=== PATIENT | female | born 1980 ===

== ENCOUNTER → 2024-05-22 11:20 | Outpatient (BNVA) | payer OTHER, SELFPAY | PROVIDERS: PCP Pediatrics; Visit Provider Physician Assistant Surgical ==

== ENCOUNTER 2024-06-22 08:26 | Outpatient (AMB) | payer OTHER, SELFPAY ==
--- NOTE | 2024-06-22 08:30 | MHC.OFFVISWM ---
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 Organization Required: No Allergies No Known Allergies Allergy (Verified 06/22/24 08:43) Medication List - Last Reconciled 06/22/24 by HAFSA Mayes albuterol sulfate mg inhalation amlodipine 5 mg PO DAILY benzonatate mg PO blood sugar diagnostic As directed CPAP (CPAP Machine/Device) As directed dulaglutide (Trulicity) mg subcut ergocalciferol (vitamin D2) 1,250 mcg PO QWEEK fluticasone propion-salmeterol 230-21 mcg/actuation 2 puffs inhalation BID fluticasone propion-salmeterol 232-14 mcg/actuation 1 inh inhalation BID hydrochlorothiazide 25 mg PO DAILY montelukast 10 mg PO DAILY omeprazole 20 mg PO DAILY rosuvastatin 5 mg PO DAILY valsartan 160 mg PO DAILY HPI Comments Details: Pt is here to start the [facility] Weight Management surgical weight loss program. She heard about our program from a friendHer goal is to lose weight and achieve a healthy lifestyle as well as to improve, if not resolve, obesity related medical conditions, including thelma, hld, htn. She reports first being concerned about her weight 24 years ago, highest weight to date was 390. Current weight is 310.8 pounds with a BMI of 56.9. She has tried multiple methods of weight loss including previous gastric banding in approximately 2013, fad diets without permanent results. She lives with her boyfriend. 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 She wakes at:?11 am, and goes to bed at?11 pm. Dinner is at 5 pm. Breakfast: eggs w toast, fast food AM snack: orange or banana Lunch: fast food, rice, salad PM snack: skip Dinner: soup, fruit, fish, potatoes, veg, chicken and rice After dinner: ice cream Other snacks: as above Liquids: 80-96 oz water, 20 oz gatorade soda, 1-2 cans sprite per week, Alcohol/marijuana/tobacco intake: none Exercise: none, previous [employer] membership GERD score: 0 ROBINSON score: 0 ESS score: 8 QOL score: 60 PFSH Surgical History Hx of laparoscopic gastric banding History of abdominoplasty Hx of eye surgery Family History Mother Breast CA Maternal Uncle Skin cancer Social History Alcohol intake: current Alcohol intake frequency: holidays/special occasions only Patient Tobacco Use Status: Never used Tobacco Physical Exam Const General: cooperative, healthy appearing and no acute distress Orientation/consciousness: patient oriented x3 HEENT Head: Yes normal to inspection Ears: hearing grossly normal bilaterally General nose exam: Normal external nose present Face and sinus: Yes normal facial exam Eyes General: appearance normal, both eyes and all related structures Resp Effort & Inspection: normal respiratory effort Auscultation: clear to auscultation bilaterally Cardio Rate: regular rate Rhythm: regular rhythm Heart sounds: S1 normal heart sound present and S2 normal heart sound present GI Inspection: Yes normal to inspection, No distended and Yes obesity Palpation (GI): Soft to palpation, nontender and no guarding Auscultation: normal bowel sounds Skin General skin exam: no rashes or lesions noted Neuro General: patient oriented x3 Extrem General: No edema Psych Appearance: grossly normal Mental Status: mental status grossly normal Speech and movement: Normal speech and movement present Affect: normal affect Attitude: cooperative Assessment & Plan Assessment & Plan (1) Morbid obesity: Code(s): E66.01 - Morbid (severe) obesity due to excess calories Category: Medical Plan: This is a?44 yo female who will start our SWL program to prepare for bariatric surgery.? Blood work, CXR, ECG, Abd US and UGI have been ordered. She is being scheduled for initial consultations. She will start SWL classes and watch the first three videos before her next appointment. 1. You have been given a paper with a link to our software chip ([email or web address]) to generate an individualized nutritional and exercise plan specific for you. Please send me a screenshot of the plans you will generate Meal to include lean meat (beef, fish, pork, turkey, chicken), or hungarian yogurt, or egg whites, or beans with a salad with olive oil and fruits (berries, pears, apples, kiwi). Avoid salt, breads, potatoes, rice, pasta, desserts. 2. If you choose shakes, each shake would be drunk slowly, like coffee over a period of 2 hours. 3. If you choose bars, cut each bar in 4 pieces and eat each piece in 30 min to make each bar last 2 hours. 4. I emphasized the importance of measuring accurately the food portion and measure it when serving the food on a plate 5. The meal portions include a specific number of forks of meat (protein) and salad. You always eat the meat portion but you can replace up to half of salad/vegetables portion with rice, potatoes or pasta, or a fruit ?if you like. The less you do it the better weight loss will be. 6. One full-size fork is what can be scooped on the fork without falling aside and not what can be bit with the fork. Use regular forks like those you find in a typical restaurant. 7.? Please send me weight measurements from your body composition scale as soon as possible and then once a week. Always include your diet and exercise plan. The best time to weigh yourself is first thing in the morning after going to the bathroom. 8. The best choice for exercise would be treadmill, elliptical, stationary bike. Please rejoin [employer] gym. Alternatively start walking outside daily, tracking calories with a goal of 300 calories per day, daily. You can download the chip [email or web address] which can track your time, distance and calories while walking outside. You press start in the chip when you start and then stop when you are finished. 9.?Goal is to lose at least 1.5-2 lbs per week, and about 10% before surgery, which is about 31 pounds 10. Please follow the diet plan exactly without any change. If you don't like something about the plan or you feel hungry you need to communicate with me so I can help you revise the plan. My cell phone number to communicate with me by text is [phone] Patient is morbidly obese and is not considered stable at this time.?I spent a total of 70 minutes reviewing/updating records, examining the patient and counseling the patient on weight management as detailed above. Orders: Orders Hemoglobin A1c Today E66.01 - Morbid (severe) obesity due to excess calories, E78.00 - Pure hypercholesterolemia, unspecified, G47.33 - Obstructive sleep apnea (adult) (pediatric), I10 - Essential (primary) hypertension Lipid Panel Today E66.01 - Morbid (severe) obesity due to excess calories, E78.00 - Pure hypercholesterolemia, unspecified, G47.33 - Obstructive sleep apnea (adult) (pediatric), I10 - Essential (primary) hypertension IRON PROFILE Today E66.01 - Morbid (severe) obesity due to excess calories, E78.00 - Pure hypercholesterolemia, unspecified, G47.33 - Obstructive sleep apnea (adult) (pediatric), I10 - Essential (primary) hypertension Comprehensive Met. Panel Today E66.01 - Morbid (severe) obesity due to excess calories, E78.00 - Pure hypercholesterolemia, unspecified, G47.33 - Obstructive sleep apnea (adult) (pediatric), I10 - Essential (primary) hypertension Vitamin B12 and Folate Today E66.01 - Morbid (severe) obesity due to excess calories, E78.00 - Pure hypercholesterolemia, unspecified, G47.33 - Obstructive sleep apnea (adult) (pediatric), I10 - Essential (primary) hypertension Vitamin A Today E66.01 - Morbid (severe) obesity due to excess calories, E78.00 - Pure hypercholesterolemia, unspecified, G47.33 - Obstructive sleep apnea (adult) (pediatric), I10 - Essential (primary) hypertension XR chest 2V Today E66.01 - Morbid (severe) obesity due to excess calories, E78.00 - Pure hypercholesterolemia, unspecified, G47.33 - Obstructive sleep apnea (adult) (pediatric), I10 - Essential (primary) hypertension ECG 12 lead EKG Today E66.01 - Morbid (severe) obesity due to excess calories, E78.00 - Pure hypercholesterolemia, unspecified, G47.33 - Obstructive sleep apnea (adult) (pediatric), I10 - Essential (primary) hypertension FL upper GI w air Today E66.01 - Morbid (severe) obesity due to excess calories, E78.00 - Pure hypercholesterolemia, unspecified, G47.33 - Obstructive sleep apnea (adult) (pediatric), I10 - Essential (primary) hypertension Insulin Today E66.01 - Morbid (severe) obesity due to excess calories, E78.00 - Pure hypercholesterolemia, unspecified, G47.33 - Obstructive sleep apnea (adult) (pediatric), I10 - Essential (primary) hypertension H Pylori Breath Test Today E66.01 - Morbid (severe) obesity due to excess calories, E78.00 - Pure hypercholesterolemia, unspecified, G47.33 - Obstructive sleep apnea (adult) (pediatric), I10 - Essential (primary) hypertension Complete Blood Count Auto Diff Today E66.01 - Morbid (severe) obesity due to excess calories, E78.00 - Pure hypercholesterolemia, unspecified, G47.33 - Obstructive sleep apnea (adult) (pediatric), I10 - Essential (primary) hypertension Zinc Today E66.01 - Morbid (severe) obesity due to excess calories, E78.00 - Pure hypercholesterolemia, unspecified, G47.33 - Obstructive sleep apnea (adult) (pediatric), I10 - Essential (primary) hypertension C Reactive Protein Today E66.01 - Morbid (severe) obesity due to excess calories, E78.00 - Pure hypercholesterolemia, unspecified, G47.33 - Obstructive sleep apnea (adult) (pediatric), I10 - Essential (primary) hypertension Vitamin B1 Today E66.01 - Morbid (severe) obesity due to excess calories, E78.00 - Pure hypercholesterolemia, unspecified, G47.33 - Obstructive sleep apnea (adult) (pediatric), I10 - Essential (primary) hypertension TSH reflex Free T4 Today E66.01 - Morbid (severe) obesity due to excess calories, E78.00 - Pure hypercholesterolemia, unspecified, G47.33 - Obstructive sleep apnea (adult) (pediatric), I10 - Essential (primary) hypertension Ferritin Today E66.01 - Morbid (severe) obesity due to excess calories, E78.00 - Pure hypercholesterolemia, unspecified, G47.33 - Obstructive sleep apnea (adult) (pediatric), I10 - Essential (primary) hypertension Vitamin D 25-OH Total Today E66.01 - Morbid (severe) obesity due to excess calories, E78.00 - Pure hypercholesterolemia, unspecified, G47.33 - Obstructive sleep apnea (adult) (pediatric), I10 - Essential (primary) hypertension US abdomen comp w elastography Today E66.01 - Morbid (severe) obesity due to excess calories, E78.00 - Pure hypercholesterolemia, unspecified, G47.33 - Obstructive sleep apnea (adult) (pediatric), I10 - Essential (primary) hypertension Referrals Behavioral Health Referral E66.01 - Morbid (severe) obesity due to excess calories, E78.00 - Pure hypercholesterolemia, unspecified, G47.33 - Obstructive sleep apnea (adult) (pediatric), I10 - Essential (primary) hypertension
[2024-06-22 08:36] VITALS: BP 175/92; PULSE 83; TEMP 36; O2SAT 90; BMI 56.8
== END 2024-06-22 09:22 | disposition home or self-care (01) ==
PROVIDERS: PCP Pediatrics; Visit Provider Physician Assistant Surgical
DX: E66.01 Morbid (severe) obesity due to excess calories (principal); Z68.43 Body mass index [BMI] 50.0-59.9, adult
CPT/HCPCS: 99205

== ENCOUNTER → 2024-06-22 08:26 | Outpatient (BNVA) | payer OTHER, SELFPAY | PROVIDERS: PCP Pediatrics; Visit Provider Physician Assistant Surgical ==

== ENCOUNTER 2024-07-17 09:44 | Outpatient (REF) | payer OTHER, SELFPAY ==
--- NOTE | ~2024-07-17 | US_ITS ---
EXAMINATION: US COMPLETE ABDOMEN WITH LIVER ELASTOGRAPHY CLINICAL INFORMATION: Morbid obesity COMPARISON: None available. TECHNIQUE: Real-time imaging of the abdominal viscera. Noninvasive ultrasound liver fibrosis assessment is performed using Alisia ElastPQ point quantification shear wave elastography (pSWE) with a C5-2 MHz transducer. Multiple elastography samples are obtained. FINDINGS: PANCREAS: The visualized pancreatic head and body are normal in appearance. The remainder of the pancreas is obscured from visualization by the overlying bowel gas. ABDOMINAL AORTA: The proximal, middle, and distal aortic segments are normal in caliber. INFERIOR VENA CAVA: Visualized portions are normal. LIVER: Liver echogenicity is increased consistent with hepatic steatosis. The liver demonstrates normal size and contour. No focal lesion or intrahepatic biliary duct dilatation. The right lobe measures 14 cm in length. The left lobe measures 13 cm in length. Portal flow is towards the liver (hepatopetal). Shear wave liver elastography median stiffness is 1.67 m/s (reference: normal median stiffness is 1.3 m/s or less). IQR/median stiffness to assess sampling precision is 0.10 (reference: good quality data set is IQR/median stiffness of 0.15 or less). GALLBLADDER: There are a few mobile gallstones present, the largest measuring 8 mm in size. There is an additional echogenic mural gallbladder mass-like area measuring 1.2 x 0.5 x 1.2 cm which could be a calcified polyp. No pericholecystic fluid. COMMON BILE DUCT: Normal in caliber measuring 0.7 cm in diameter. RIGHT KIDNEY: Normal. No hydronephrosis. No renal calculi or focal parenchymal lesions. The kidney measures 13.4 cm in maximum dimension. LEFT KIDNEY: Normal. No hydronephrosis. No renal calculi or focal parenchymal lesions. The kidney measures 12.2 cm in maximum dimension. SPLEEN: Normal. The spleen measures 12.7 cm in maximum dimension. FREE FLUID: None. US/US abdomen comp w elastography IMPRESSION: 1. Echogenic liver consistent with hepatic steatosis. 2. Cholelithiasis and question of calcified gallbladder wall polyp. 2. Liver elastography: In the absence of other known clinical signs, measurements rule out compensated advanced chronic liver disease. If there are known clinical signs, further testing may be needed for confirmation. REFERENCE: Society of Radiologists in Ultrasound Liver Stiffness Thresholds (2020): LIVER STIFFNESS THRESHOLDS: *Liver Stiffness equal or less than 1.3 m/s: High probability of being normal. *Liver Stiffness less than 1.7 m/s: In the absence of other known clinical signs, rules out compensated advanced chronic liver disease. *Liver Stiffness 1.7-2.1 m/s: Suggestive of compensated advanced chronic liver disease but need further test for confirmation. *Liver Stiffness over 2.1 m/s: Rules in compensated advanced chronic liver disease. *Liver Stiffness over 2.4 m/s: Suggestive of clinically significant portal hypertension. QUALITY OF DATA SET: *IQR/Median value equal or less than 0.15 implies a quality data set. *IQR/Median value over 0.15 implies a poor quality data set. SIGNIFICANT CHANGE FROM PRIOR EXAM: Significant change if liver stiffness measurement is 10% or greater from prior exam. OTHER CONSIDERATIONS: The stage of liver fibrosis may be overestimated in the setting of acute hepatitis, liver inflammation, elevated liver function tests, hepatic vascular congestion, obstructive cholestasis, non-fasting state, and infiltrative diseases such as amyloidosis and lymphoma. In some patients with NAFLD, the liver stiffness thresholds for compensated advanced chronic liver disease may be lower. In causes other than viral hepatitis and NAFLD, liver stiffness thresholds are not well established. Electronically signed by: Narayan Knight MD 07/25/2024 12:36 PM EDT
[2024-07-17 09:58] LABS: MANUAL DIFF FLAG NO
[2024-07-17 11:44] LABS: Basophils Percent Auto 0.6 % (0-2); Eosinophils Absolute Auto 0.1 X10*3/uL (0.0-0.4); Eosinophils Percent Auto 2.8 % (0-4); Hematocrit 39.6 % (37.0-47.0); Hemoglobin 12.7 g/dl (12.0-16.0); Imm Gran Abs Auto 0.01 X10*3/uL (0.00-0.03); Imm Gran Pct Auto 0.2 % (0.0-0.4); Lymphocytes Percent Auto 42.2 % (20-40); Mean Corpuscular HGB Conc 32.1 g/dl (31.0-35.0); Mean Corpuscular Hemoglobin 27.1 pg (27.0-33.0); Mean Corpuscular Volume 84.6 fL (80.0-98.0); Mean Platelet Volume 9.6 fL (9.4-12.3); Monocytes Absolute Auto 0.5 X10*3/uL (0.1-1.2); Neutrophils Percent Auto 44.2 % (45-73); Platelet Count 294 X10*3/uL (160-400); Red Blood Count 4.68 X10*6/uL (4.20-5.50); Red Cell Distribution Width 14.6 % (11.0-16.0); White Blood Count 4.6 X10*3/uL (4.8-10.8)
[2024-07-17 12:26] LABS: Alanine Aminotransferase 17 U/L (0-31); Albumin Level 3.6 g/dL (3.5-5.0); Alkaline Phosphatase 90 U/L (39-117); Anion Gap 11 (12-20); Aspartate Amino Transferase 15 U/L (5-31); Bilirubin Total 0.3 mg/dL (0.0-1.0); Blood Urea Nitrogen 13 mg/dL (9-16); C Reactive Protein 1.49 mg/dL (< or = 0.50); Calcium 8.8 mg/dL (8.4-10.2); Carbon Dioxide 27 mmol/L (22-29); Chloride 106 mmol/L (96-108); Cholesterol 152 mg/dL (<200); Estimated Glomerular Filt Rate > 60; Glucose Random 116 mg/dL (60-115); HDL Cholesterol 35 mg/dL (>40); Iron 48 mcg/dL (30-160); LDL Cholesterol Calculated 101 mg/dL (<100); Percent Iron Saturation 20 % (15-50); Potassium 3.7 mmol/L (3.3-5.1); Sodium 140 mmol/L (135-145); Total Iron Binding Capacity 236 mcg/dL (228-428); Total Protein 7.5 g/dL (6.5-8.0); Triglycerides 82 mg/dL (<150); Unsaturated Iron Binding 188 ug/dL
[2024-07-17 12:45] LABS: Ferritin 40 ng/mL (10-250); Insulin 14 uU/mL (2-29); TSH reflex Free T4 2.33 uIU/mL (0.32-4.0); Vitamin D 25-OH Total 21.6 ng/mL (>30)
[2024-07-17 13:04] LABS: Folate 7.6 ng/mL (> or = 4.0); Vitamin B12 429 pg/mL (200-900)
[2024-07-17 13:18] LABS: Estimated Average Glucose 160 mg/dL; Hemoglobin A1c % 7.2 % (<6.0)
[2024-07-21 12:43] LABS: Zinc 52 mcg/dL (60-130)
[2024-07-22 17:38] LABS: Vitamin A 23 mcg/dL (38-98)
[2024-08-03 16:33] LABS: Vitamin B1 80
== END 2024-07-17 09:45 | disposition home or self-care (01) ==
LOC: HO.US 09:44
PROVIDERS: PCP Pediatrics; Visit Provider Physician Assistant Surgical
DX: E66.01 Morbid (severe) obesity due to excess calories (principal); I10 Essential (primary) hypertension; G47.33 Obstructive sleep apnea (adult) (pediatric); E78.00 Pure hypercholesterolemia, unspecified; Z13.1 Encounter for screening for diabetes mellitus
CPT/HCPCS: 36415; 76700; 76981; 80053; 80061; 82306; 82607; 82728; 82746; 83036; 83525; 83540; 84425; 84443; 84590; 84630; 85025; 86140

== ENCOUNTER 2024-07-20 08:00 | Outpatient (AMB) | payer OTHER, SELFPAY ==
--- NOTE | 2024-07-20 08:10 | A.OFFWM_ITS ---
Intake Intake Visit Reasons: VIDEO BH Intake Allergies No Known Allergies Allergy (Verified 06/22/24 08:43) PFSH Surgical History Hx of laparoscopic gastric banding History of abdominoplasty Hx of eye surgery Family History Mother Breast CA Maternal Uncle Skin cancer Social History Alcohol intake: current Alcohol intake frequency: holidays/special occasions only Patient Tobacco Use Status: Never used Tobacco Behavioral Health Assessment Weight Management Therapy Therapy Notes Details PT is a 44 years old Female, who presents for a visit to complete BH assessment as part of surgical weight loss program. Presenting Concerns Referral Source WMP-provider, PT saw MB for the first time on 06/22/24. Initially referred by a friend who has surgery with us. Reason for referral Completion of behavioral health assessment as part of process for weight-loss surgery. Precipitating Event Obesity. Issues losing weight despite she had the lapband around 2013. Living Situation Current Living Situation Own At risk of losing current housing? No Satisfied with current living situation? Yes Comments PT lives alone. Food/Weight/Diet Expectations of change Initial goal is to lose at least 1.5-2 lbs per week, and about 10% before surgery, which is about 31 pounds. She started the program on 06/22 at 310Lbs. Patient goals are to improve her health, become an active person and feel better with her body. PT is implementing the following: -Current meal plan: 1 shake, meal for marvin nch, a bar in the afternoon, a meal for dinner. -Exercise plan: walking 1 hour in the mo rning, 5 days at week. Also doing some exercise at home with weights 7 days at week. History/Relationship with food Example of meals before starting the program: Breakfast: Lunch: Dinner: Snacks: Drinks/Liquids: History/Relationship with weight In the last 10 years, the patient's Lowest weight was and highest Social History Family history and relationship PT in 2005, and has been in a rel ationship for about 7 years however they each live at their own place. She doesn't have children. Has 2 brothers from mom and dad, and has 3 other siblings on her dad's side but they don't have a communication. Parents are , mother lives in [place] and father in [place]. PT reports she is very close to her family and her boyfriend's family. Parental/Familial child care supervisor obligations None. Developmental history and status None reported. Currently WNL. Social support Boyfriend, Mother. Community support None. Christian/Spirituality Lutheran. Attend holiness every Saturday. Cultural/Ethnic information PT was born in [place]. Moved to the when was 8 y/o. Legal Involvement and History Current or historical involvement with the legal system? None reported. Education Highest grade completed Bachelors in Information administrative systems. Has an A.S. in medical assistance and coding. Preferred learning style Auditory, Written and Learn by doing Currently enrolled in educational program? No Interested in further educational program? 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 No Meaningful activities Walks, outdoor activities. As part of her job she plans activities for the residents, and she enjoys going to the [employer], [employer], and [employer] often that she enjoys also. Financial Situation Describe current financial situation Comfortable Financial assistance? None Service Service? No Medications Is the patient compliant with medications? Yes Does the patient have Ambrocio Guardian in place? Not applicable Does the patient use complimentary health approaches? No Questionnaires PHQ-9 Over the last 2 weeks, how often have you been bothered by any of the following problems? 1. Little interest or pleasure in doing things: not at all 2. Feeling down, depressed, or hopeless: several days 3. Trouble falling or staying asleep, or sleeping too much: several days 4. Feeling tired or having little energy: several days 5. Poor appetite or overeating: not at all 6. Feeling bad about yourself - or that you are a failure or have let yourself or your family down: not at all 7. Trouble concentrating on things, such as reading the newspaper or watching television: not at all 8. Moving or speaking so slowly that other people could have noticed. Or the opposite - being so fidgety or restless that you have been moving around a lot more than usual: not at all 9. Thoughts that you would be better off or of hurting yourself in some way: not at all Total score: 3 Depression Screening Interpretation: Negative (Scores collected on 06/24. New one will be administered in next visit. ) Depression Screening Done: Yes Source: Developed by Drs. Dev Blackburn, Janelle Coto, Jack Bang and colleagues, with an educational clarice from [employer]. Binge Eating Scale Group 1 A. I don't feel self-conscious about my wt. or body size when I'm with others. B. I feel concerned about how I look to others, but it normally does not make me fell disappointed with myself C. I do get self-conscious about my appearance and wt. which makes me feel disappointed in myself. D. I feel very self-conscious about my wt. and frequently I feel intense shame and disgust for myself. I try to avoid social contacts because of my self- consciousness. Response Group 1: A Group 2 A. I don't have any difficulty eating slowly in the proper manner. B. Although I seem to gobble down foods, I don't end up feeling stuffed because of eating to much. C. At times, I tend to eat quickly and then, I feel uncomfortably full afterwards. D. I have the habit of bolting down my food, without really chewing it. When this happens I usually feel uncomfortably stuffed because I've eaten to much. Response Group 2: C Group 3 A. I feel capable to control my eating urges when I want to. B. I feel like I have failed to control my eating more than the average person. C. I feel utterly helpless when it comes to feeling in control of my eating urges. D. Because I feel so helpless about controlling my eating I have become very desperate about trying to get control. Response Group 3: C Group 4 A. I don't have the habit of eating when I'm bored. B. I sometimes eat when I'm bored, but often I'm able to get busy and get my mind off food. C. I have a regular habit of eating when I'm bored, but occasionally, I can use some other activity to get my mind off eating. D. I have a strong habit of eating when I'm bored. Nothing seems to help me breath the habit. Response Group 4: B Group 5 A. I'm usually physically hungry when I eat something. B. Occasionally, I eat something on impulse even though I really am not hungry. C. I have the regular habit of eating foods, that I might not really enjoy, to satisfy a hungry feeling even though physically, I don't need the food. D. Although I'm not physically hungry, I get a hungry feeling in my mouth that only seems to be satisfied when I eat a food, like sandwich, that fills my mouth. Sometimes, when I eat the food to satisfy my mouth hunger, I then spit the food out so I won't gain weight. Response Group 5: C Group 6 A. I don't feel any guilt or self-hate after I overeat. B. After I overeat, occasionally I feel guilt or self-hate. C. Almost all the time I experience strong guilt or self-hate after I overeat. Response Group 6: C Group 7 A. I don't lose total control of my eating when dieting even after periods when I overeat. B. Sometimes when I eat a forbidden food on a diet, I feel like I blew it and eat even more. C. Frequently, I have the habit of saying to myself, I've blown it now, why not go all the way, when I overeat on a diet. When that happens I eat more. D. I have a regular habit of starting a strict diets for myself but I break the diets by going on an eating binge. My life seems to be either a feast or famine. Response Group 7: D Group 8 A. I rarely eat so much food that I feel uncomfortably stuffed afterwards. B. Usually about once a month, I each such a quantity of food, I end up feeling very stuffed. C. I have regular periods during the month when I eat large amounts of food, either at mealtime or at snacks. D. I eat so much food that I regularly feel quite uncomfortable after eating and sometimes a bit nauseous. Response Group 8: D Group 10 A. I usually am able to stop eating when I want to. I know when enough is enough. B. Every so often, I experience a compulsion to eat which I can't seem to control. C. Frequently, I experience strong urges to eat which I seem unable to control, but at other times I can control my eating urges. D. I feel incapable of controlling urges to eat. I have a fear of not being able to stop eating voluntarily. Response Group 10: A Group 11 A. I don't have any problem stopping eating when I feel full. B. I usually can stop eating when I feel full but occasionally overeat leaving me feeling uncomfortably stuffed. C. I have a problem stopping eating once I start and usually I feel uncomfortably stuffed after I eat a meal. D. Because I have a problem not being able to stop eating when I want, I sometimes have to induce vomiting to relieve my stuffed feeling. Response Group 11: A Group 12 A. I seem to eat just as much when I'm with others, Family social gatherings as when I'm by myself. B. Sometimes, when I'm with other persons, I don't eat as much as I want to eat because I'm self-conscious about my eating. C. Frequently, I eat only a small amount of food when others are present, because I'm very embarrassed about my eating. D. I feel so ashamed about overeating that I pick times to overeat when I know no one will see me. I feel like a closet eater. Response Group 12: A Group 13 A. I eat three meals a day with only an occasional between meal snack. B. I eat 3 meals a day, but I also normally snack between meals. C. When I am snacking heavily, I get in the habit of skipping regular meals. D. There are regular periods when I seem to be continually eating, with no planned meals. Response Group 13: D Group 14 A. I don't think much about trying to control unwanted eating urges. B. At least some of the time, I feel my thoughts are pre-occupied with trying to control my eating urges. C. I feel that frequently I spend much time thinking about how much I ate or about trying not to eat anymore. D. It seems to me that most of my waking hours are pre-occupied by thoughts about eating or not eating. I feel like I'm constantly struggling not to eat. Response Group 14: B Group 15 A. I don't think about food a great deal. B. I have strong craving for food but they last only for brief periods of time. C. I have days when I can't seem to think about anything else but food. D. Most of my days seem to be pre-occupied with thoughts about food. I feel like I live to eat. Response Group 15: A Binge Eating Score: 19 (Incomplete, missing 3 answers, will review with client at next visit. ) Score less than 17 Minimal Risk Score between 18-26 Moderate Risk Score between 27-46 High Risk Assessment & Plan Assessment & Plan (1) Adjustment disorder: Code(s): F43.20 - Adjustment disorder, unspecified Qualifiers: Adjustment disorder type: unspecified type Qualified Code(s): F43.20 - Adjustment disorder, unspecified Plan PT not cleared today, as assessment was not finished today. BED will be reviewed with client as there are missed answers and PHQ-9 repeated, so we will Follow up in 2 weeks to continue assessment. Next chip: 08/03/2024 at 8am via Telehealth. Telehealth Telehealth Telehealth Platform: [facility] Location of provider rendering services: other Location of patient: address on file Patient Identification confirmed using: Name, : Yes Telehealth method: video Patient verbally consented to treatment: Yes Patient verbally consented to billing insurance company: Yes Patient informed of any privacy concerns related to visit: No Minutes spent on Phone/Video with Pt.: 60 Coding Level of Care Code New Pt Tele Psy Diag Gunjan ([id number]) Patient Type New Diagnoses Adjustment disorder, unspecified type F43.20 Adjustment disorder type: unspecified type Time Spent (min) 60 Comment start: 8:00- End: 9:00am
== END 2024-07-20 09:07 | disposition home or self-care (01) ==
LOC: HO.HBST 09:03
PROVIDERS: PCP Pediatrics; Visit Provider Counselor Mental Health
DX: F43.20 Adjustment disorder, unspecified (principal)
CPT/HCPCS: 90791

== ENCOUNTER → 2024-07-20 08:00 | Outpatient (BNVA) | payer OTHER, SELFPAY | PROVIDERS: PCP Pediatrics; Visit Provider Counselor Mental Health ==

== ENCOUNTER 2024-07-21 06:52 | Day surgery (SDC) | payer OTHER, SELFPAY ==
--- NOTE | 2024-07-17 14:12 | P.CONAN_ITS ---
Documented by User: Regina Cueto NP 07/17/24 14:13 HPI - Anesthesia Eval Consult details Narrative: 44yo F for Upper Endoscopy Anesthesia Pre-Procedure Meds Is the patient on any of the following meds?: GLP1/DPP4 PMFSH Active Problems Active Problems: All Active Problems Hypercholesterolemia (Acute) JACI (obstructive sleep apnea) (Acute) HTN (hypertension) (Acute) Morbid obesity (Acute) Past Medical History Medical History Diabetes Asthma Family History Family History Mother Breast CA Maternal Uncle Skin cancer Surgical History Surgical History Hx of laparoscopic gastric banding History of abdominoplasty Hx of eye surgery Social History Social History Alcohol intake: current Alcohol intake frequency: holidays/special occasions only Patient Tobacco Use Status: Never used Tobacco Use of substances other than those prescribed or required for medical reasons: No Are you DNR?: No Advance Directives: No Advance Directives Information Provided: Yes Nutrition Risks: No Nutritional Risk Meds Allergies Allergy/AdvReac Type Severity Reaction Status Date / Time No Known Allergies Allergy Verified 06/22/24 08:43 Home Medications ?Medication ?Instructions ?Recorded ?Confirmed ?Last Taken ?Type CPAP (CPAP Machine/Device) 05/22/24 06/22/24 Unknown History albuterol sulfate 2.5 mg/3 mL mg inhalation 05/22/24 06/22/24 Unknown History (0.083 %) solution for nebulization amlodipine 5 mg tablet 5 mg PO DAILY 05/22/24 06/22/24 Unknown History benzonatate 100 mg capsule mg PO 05/22/24 06/22/24 Unknown History blood sugar diagnostic 05/22/24 06/22/24 Unknown History dulaglutide 3 mg/0.5 mL mg subcut 05/22/24 06/22/24 07/07/24 History subcutaneous pen injector (Trulicity) ergocalciferol (vitamin D2) 1,250 1,250 mcg PO QWEEK 05/22/24 06/22/24 Unknown History mcg (50,000 unit) capsule fluticasone 232 mcg-salmeterol 14 1 inh inhalation BID 05/22/24 06/22/24 Unknown History mcg/actuation breath activated powdr fluticasone propionate 230 2 puff inhalation BID 05/22/24 06/22/24 Unknown History mcg-salmeterol 21 mcg/actuation HFA inhaler hydrochlorothiazide 25 mg tablet 25 mg PO DAILY 05/22/24 06/22/24 Unknown History montelukast 10 mg tablet 10 mg PO DAILY 05/22/24 06/22/24 Unknown History omeprazole 20 mg capsule,delayed 20 mg PO DAILY 05/22/24 06/22/24 Unknown History release rosuvastatin 5 mg tablet 5 mg PO DAILY 05/22/24 06/22/24 Unknown History valsartan 160 mg tablet 160 mg PO DAILY 05/22/24 06/22/24 Unknown History Assessment and Plan Assessment Anesthesia Assessment: Chart Reviewed Documented by User: Willow Washington MD 07/21/24 07:34 [facility] Active Problems Active Problems: All Active Problems Hypercholesterolemia (Acute) JACI (obstructive sleep apnea) (Acute) HTN (hypertension) (Acute) Morbid obesity (Acute) asthma diabetes Past Medical History Medical History Diabetes Asthma Family History Family History Mother Breast CA Maternal Uncle Skin cancer Surgical History Surgical History Hx of laparoscopic gastric banding History of abdominoplasty Hx of eye surgery History of Problems with Anesthesia: No Social History Social History Alcohol intake: current Alcohol intake frequency: holidays/special occasions only Patient Tobacco Use Status: Never used Tobacco Use of substances other than those prescribed or required for medical reasons: No Are you DNR?: No Advance Directives: No Advance Directives Information Provided: Yes Nutrition Risks: No Nutritional Risk Meds Allergies Allergy/AdvReac Type Severity Reaction Status Date / Time No Known Allergies Allergy Verified 06/22/24 08:43 Home Medications ?Medication ?Instructions ?Recorded ?Confirmed ?Last Taken ?Type CPAP (CPAP Machine/Device) 05/22/24 06/22/24 Unknown History albuterol sulfate 2.5 mg/3 mL mg inhalation 05/22/24 06/22/24 Unknown History (0.083 %) solution for nebulization amlodipine 5 mg tablet 5 mg PO DAILY 05/22/24 06/22/24 Unknown History benzonatate 100 mg capsule mg PO 05/22/24 06/22/24 Unknown History blood sugar diagnostic 05/22/24 06/22/24 Unknown History dulaglutide 3 mg/0.5 mL mg subcut 05/22/24 06/22/24 07/07/24 History subcutaneous pen injector (Trulicity) ergocalciferol (vitamin D2) 1,250 1,250 mcg PO QWEEK 05/22/24 06/22/24 Unknown History mcg (50,000 unit) capsule fluticasone 232 mcg-salmeterol 14 1 inh inhalation BID 05/22/24 06/22/24 Unknown History mcg/actuation breath activated powdr fluticasone propionate 230 2 puff inhalation BID 05/22/24 06/22/24 Unknown History mcg-salmeterol 21 mcg/actuation HFA inhaler hydrochlorothiazide 25 mg tablet 25 mg PO DAILY 05/22/24 06/22/24 Unknown History montelukast 10 mg tablet 10 mg PO DAILY 05/22/24 06/22/24 Unknown History omeprazole 20 mg capsule,delayed 20 mg PO DAILY 05/22/24 06/22/24 Unknown History release rosuvastatin 5 mg tablet 5 mg PO DAILY 05/22/24 06/22/24 Unknown History valsartan 160 mg tablet 160 mg PO DAILY 05/22/24 06/22/24 Unknown History Exam Airway Mallampati Class: II TM Dist: >3cm Neck ROM: Full Loose/Missing/Broken Teeth: No Heart: RRR Lungs: CTA Assessment and Plan Assessment Anesthesia Assessment: Anesthesia Plan Discussed Final Anesthetic Review History of Problems with Anesthesia: No NPO: Yes ASA Class: III Final Preanesthetic Review: Meds/Allgs Chart Reviewed, Consent Obtained/Reviewed and Anes Risks/Benef Reviewed Patient Risk: Intermediate Procedure Risk: Intermediate Anesthetic Plan Anesthetic Plan: MAC: Disposition: Standard PACU
[2024-07-21 07:11] VITALS: BMI 54.6
[2024-07-21 07:20] VITALS: BP 150/93; PULSE 78; RESP 16; TEMP 36.2; O2SAT 97
[2024-07-21 07:26] LABS: UPreg QC Valid YES; Urine Pregnancy NEGATIVE (NEGATIVE)
--- NOTE | 2024-07-21 07:27 | MHC.SHP ---
Pre-Procedural Eval Section A - 24 Hr Update-Section A only Date of Service: 07/21/24 The patient is an INPATIENT: No The patient has been examined within 24 hours of the surgical procedure. The History & Physical has been completed within 30 days and I have reviewed it.: Yes Section B - Complete if H&P > 30 days Chief Complaint: Morbid (severe) obesity due to excess calories Details of Present Illness: Lap band status Relevant Family History (Specify if Yes): No Relevant Social History: None Present Medications: None Medical History: No relevant PMH History of Previous Operations: Relevant previous surgery/procedure and date(s) (Laparoscopic gastric band) Allergies: Allergies Allergy/AdvReac Type Severity Reaction Status Date / Time No Known Allergies Allergy Verified 06/22/24 08:43 Review of Systems Sugical H&P ROS: Negative: Constitution, Cardiovascular, Respiratory, Neurological, Psychiatric, Hem-Onc, Allergic/Immunologic, Gastrointestinal, Genitourinary, Musculoskeletal, Integumentary, Endocrine and Eyes/Ears/Nose/Throat Exam Surgical H&P Exam: Normal: HEENT, Normal: Heart, Normal: Lungs, Normal: Extremities, Normal: Skin and Normal: Neurological and Significant Findings: Abdomen (port palpated above the umbilcus) Plan Diagnosis/Plan: Unchanged (Upper endoscopy to rule out band erosion. Risks of bleeding and perforation were discussed with the patient and she is in agreement with the plan) I have reviewed the history and physical and performed a pertinent physical examination on my patient. No changes have occurred unless specified. Time Spent With Patient Time: Total time managing care of this patient today ____ minutes.
[2024-07-21] MEDS: Lactated Ringers 1,000 ML 80 ML IVCONT (07:31)
[2024-07-21 07:35] LABS: Glucose, Whole Blood 114 mg/dL (60-115)
--- NOTE | 2024-07-21 07:35 | PM.OP ---
Brief Operative Note Date of Service: 07/21/24 Pre-op diagnosis: Lap band status Post-op diagnosis: same (Normal endoscopy) Procedure: PREOPERATIVE DIAGNOSIS: Morbid obesity, s/p lap band POSTOPERATIVE DIAGNOSIS: ?Same as above. Normal endoscopy PROCEDURE: Rosovgrc-[id number] with biopsies Surgeon: Dina Rodriguez M.D.. Ph.D. Defensive Secondary Coach: None ? Anesthesia: IV sedation Estimated blood loss: ?Minimal FINDINGS AND PROCEDURE: ? OPERATIVE INDICATIONS: ?The patient is a 44 year old female known to me who underwent a laparoscopic gastric band elsewhere. The patient had poor weight loss so far. The patient is interested in a revision. Based on this information I recommended an upper endoscopy to rule out a band erosion. Risks and complications of the surgery were discussed with the patient in advance particularly the possibility of perforation or bleeding that may require surgical intervention. The patient understood the risks and was in agreement with the plan. ? PROCEDURE: After informed consent was obtained by the patient, the patient was ?transferred to the Operating Room and was placed in the supine position.? After successful induction of IV sedation, a mouth block was inserted and the patient was placed in the left lateral decubitus position. An upper endoscopy was performed next, the oropharynx and esophagus appeared within the normal limits. There was no hiatal hernia. The z-line was smooth. Two biopsies were obtained from the GE junction and distal esophagus. The stomach was entered and it appeared to be of normal size. There was no band erosion, ?gastritis and no ulcer. One biopsy was obtained from the gastric fundus and antrum. No significant bleeding was noted from any of the biopsy sites. The scope was advanced into the duodenum which appeared to be normal as well. Retroflexion was performed and again no band erosion was seen. At that point the duodenum and the stomach were decompressed and the scope was withdrawn from the patient's mouth. The patient was awaken and was transferred in stable condition to the Recovery Room for further care. I was present and performed all steps of the procedure. There were no residents to assist with this case. Trey Rodriguez M.D., Ph.D. Surgeon: Jacques Rodriguez MD Anesthesia: MAC Was an Defensive Secondary Coach used for this Procedure?: No Estimated blood loss (mL): 0 IV fluids (mL): 400 Urine output (mL): 0 (No Vines to record output) Pathology: other (1) antrum x1, 2) fundus x1, 3) GE junction x2, 4) distal esophagus x2) Condition: stable Disposition: PACU
[2024-07-21 08:05] VITALS: BP 143/92; PULSE 89; RESP 14; TEMP 36.1; O2SAT 98
[2024-07-21 08:20] VITALS: BP 163/100; PULSE 72; RESP 16; O2SAT 97
[2024-07-21 08:35] VITALS: BP 160/91; PULSE 75; RESP 20; TEMP 36.2; O2SAT 97
== END 2024-07-21 09:05 | disposition home or self-care (01) ==
PROVIDERS: Nurse Practitioner; PCP Pediatrics; Visit Provider Surgery
PROC: 0DJ08ZZ Inspection of Upper Intestinal Tract, Via Natural or Artificial Opening Endoscopic (ICD-10-PCS; CPT 43235; principal; 2024-07-21 08:10)
DX: E66.01 Morbid (severe) obesity due to excess calories (principal); Z68.43 Body mass index [BMI] 50.0-59.9, adult; Z98.84 Bariatric surgery status; I10 Essential (primary) hypertension; E11.9 Type 2 diabetes mellitus without complications; E78.00 Pure hypercholesterolemia, unspecified; G47.33 Obstructive sleep apnea (adult) (pediatric); Z79.85 Long-term (current) use of injectable non-insulin antidiabetic drugs; Z79.899 Other long term (current) drug therapy; Z99.89 Dependence on other enabling machines and devices; Z98.890 Other specified postprocedural states
CPT/HCPCS: 43239; 81025; 82947; 88305; 88313; 88342; J1100; J1596; J2250; J2704

== ENCOUNTER → 2024-07-21 06:52 | Outpatient (BNV) | payer OTHER, SELFPAY | PROVIDERS: PCP Pediatrics; Visit Provider Surgery | DX: K95.09 Other complications of gastric band procedure (principal) | CPT/HCPCS: 43239 ==

== ENCOUNTER 2024-07-23 10:11 | Outpatient (AMB) | payer OTHER, SELFPAY ==
--- NOTE | 2024-07-23 09:12 | A.OFFVIS_ITS ---
VS Expanded 07/23/24 09:13 Height 5 ft 2 in Weight 306 lb 6 oz BMI 56.0 Body Fat % 70 Body Fat Mass 214.6 Fat Free Mass 92 Visceral Fat Rating 30 Body Water % 20.5 Body Water Mass 62.8 Muscle Mass/Score 86.4 Basal Metabolic Rate/Score 1,270 Intake Visit Reasons: (TV) F/U SWL Practice Assistant Required: No Allergies No Known Allergies Allergy (Verified 06/22/24 08:43) Medication List - Last Reconciled 07/23/24 by HAFSA Mayes albuterol sulfate mg inhalation amlodipine 5 mg PO DAILY benzonatate mg PO blood sugar diagnostic As directed CPAP (CPAP Machine/Device) As directed dulaglutide (Trulicity) mg subcut ergocalciferol (vitamin D2) 1,250 mcg PO QWEEK fluticasone propion-salmeterol 230-21 mcg/actuation 2 puffs inhalation BID fluticasone propion-salmeterol 232-14 mcg/actuation 1 inh inhalation BID hydrochlorothiazide 25 mg PO DAILY montelukast 10 mg PO DAILY omeprazole 20 mg PO DAILY rosuvastatin 5 mg PO DAILY valsartan 160 mg PO DAILY HPI Comments Details: Patient is a pleasant 44-year-old female who returns to the office today in follow-up. She was initially seen in the office on 06/22/2024. At that time, her weight was 310.8 lb with a BMI of 56.9. Weight today is 306.6 pounds wih a BMI of 56. She has lost 4.2 lb or 1.3% total body weight loss. She states that at first it was hard but she is now is getting used to it Meal plan: Shake boost rtd meal 9 forks meat, 9 forks veg bar meal 9 forks , 9 forks bar exercise walking outside, not tracking calories, daily, 30-60 min PFSH Medical History Diabetes Asthma Surgical History Hx of laparoscopic gastric banding History of abdominoplasty Hx of eye surgery Family History Mother Breast CA Maternal Uncle Skin cancer Social History Alcohol intake: current Alcohol intake frequency: holidays/special occasions only Patient Tobacco Use Status: Never used Tobacco Telehealth Telehealth Telehealth Platform: Telephone Location of provider rendering services: practice address Location of patient: address on file Patient Identification confirmed using: Name, : Yes Telehealth method: voice only Patient verbally consented to treatment: Yes Patient verbally consented to billing insurance company: Yes Patient informed of any privacy concerns related to visit: Yes Minutes spent on Phone/Video with Pt.: 20 Assessment & Plan Assessment & Plan (1) Morbid obesity: Code(s): E66.01 - Morbid (severe) obesity due to excess calories Category: Medical Plan: Patient encouraged to continue to follow the chip recommendations. Encouraged to track calories while walking. Encouraged to increase exercise as she has only lost 4.2 lb in 1 month. She states that she will put these in place and return to the office in approximately 1 month
[2024-07-23 09:13] VITALS: BMI 56.0
== END 2024-07-23 10:22 | disposition home or self-care (01) ==
LOC: HO.HBS 10:11
PROVIDERS: PCP Pediatrics; Visit Provider Physician Assistant Surgical
DX: E66.01 Morbid (severe) obesity due to excess calories (principal)
CPT/HCPCS: 99213

== ENCOUNTER → 2024-07-23 10:11 | Outpatient (BNVA) | payer OTHER, SELFPAY | PROVIDERS: PCP Pediatrics; Visit Provider Physician Assistant Surgical ==

== ENCOUNTER → 2024-08-03 08:17 | Outpatient (AMB) | payer OTHER, SELFPAY ==
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
== END ==
LOC: HO.HBST 08:17
PROVIDERS: PCP Pediatrics; Visit Provider Counselor Mental Health
DX: F43.20 Adjustment disorder, unspecified (principal)
CPT/HCPCS: 90837

== ENCOUNTER → 2024-08-03 08:17 | Outpatient (BNVA) | payer OTHER, SELFPAY | PROVIDERS: PCP Pediatrics; Visit Provider Counselor Mental Health ==

== ENCOUNTER → 2024-08-19 10:12 | Outpatient (BNVA) | payer OTHER, SELFPAY | PROVIDERS: PCP Pediatrics; Visit Provider Physician Assistant Surgical ==